=== PATIENT | female | born 2005 | race American Indian/Alaskan Native ===

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

== ENCOUNTER 2024-08-19 18:51 | Emergency (ER) | payer SELFPAY ==
[2024-08-19 19:13] VITALS: PULSE 102
[2024-08-19] MEDS: Dexamethasone 4 MG/ML SDV IM ONE (20:01)
[2024-08-19 20:09] VITALS: BP 110/73
== END 2024-08-19 20:07 | disposition home or self-care (01) ==
LOC: DL.ED 18:51
DX: J06.9 Acute upper respiratory infection, unspecified (principal); B97.89 Other viral agents as the cause of diseases classified elsewhere; N63.0 Unspecified lump in unspecified breast; J45.909 Unspecified asthma, uncomplicated; F17.210 Nicotine dependence, cigarettes, uncomplicated
CPT/HCPCS: 71046; 87081; 87428; 87430; 96372; 99284; J1100

== ENCOUNTER 2024-08-20 03:30 | Emergency (ER) | payer SELFPAY ==
[2024-08-20 03:44] LABS: BASOPHILS PERCENT AUTO 0.4 % (0.0-1.0); HEMATOCRIT 26.5 % (37.0-47.0); HEMOGLOBIN 7.2 g/dL (12.0-16.0); LYMPHOCYTES PERCENT AUTO 4.1 % (20.5-50.1); MEAN CORPUSCULAR HEMOGLOBIN 16.7 pg (27.0-34.0); MEAN CORPUSCULAR HGB CONC 27.2 g/dL (33.0-35.0); MEAN CORPUSCULAR VOLUME 61.6 fL (80-100); MONOCYTES PERCENT AUTO 0.4 % (2-8); NEUTROPHILS PERCENT AUTO 95.1 % (42.2-75.2); PLATELET COUNT,PLT 422 10^3/uL (150-450); WHITE BLOOD CELL COUNT,WBC 10.3 10^3/uL (5.0-10.0)
[2024-08-20] MEDS: Bacitracin Oint 1 GM U/D Packet TOP ONE (03:54)
[2024-08-20] MEDS: Diphtheria,Pertussis(Acell),Tetanus Vaccine 0.5 ML Syringe IM ONE (03:54)
[2024-08-20] MEDS: Sodium Chloride 0.9% 1,000 ML IV ONE (04:01)
[2024-08-20 04:23] LABS: ALBUMIN 3.8 g/dL (3.4-5.0); ANION GAP 19.1 mEq/L (7-13); BILIRUBIN TOTAL 0.4 mg/dL (0.2-1.0); BUN/CREATININE RATIO 5.2 (No establ ref range); CALCIUM 8.1 mg/dL (8.5-10.1); CREATININE 0.58 mg/dL (0.55-1.02); EST CRCL DRUG DOSING (CG) 149.57 mL/min; POTASSIUM,K 4.1 mmol/L (3.5-5.1); PROTEIN TOTAL,TP 7.6 g/dL (6.4-8.2); TSH ULTRASENSITIVE 0.47 uIU/mL (0.36-3.74)
[2024-08-20 04:58] LABS: APPEARANCE,URINE SLIGHTLY CLOUDY (CLEAR); BILIRUBIN,URINE NEGATIVE (NEGATIVE); COLOR,URINE YELLOW (YELLOW); GLUCOSE,URINE 100 (NEGATIVE); KETONES,URINE NEGATIVE (NEGATIVE); LEUKOCYTE ESTERASE,URINE SMALL (NEGATIVE); NITRITE,URINE NEGATIVE (NEGATIVE); OCCULT BLOOD,URINE LARGE (NEGATIVE); PH,URINE 5.5 (5.0-9.0); PROTEIN,URINE NEGATIVE (NEGATIVE); UROBILINOGEN,URINE 0.2 mg/dL (0.2-1.0)
[2024-08-20 05:06] LABS: AMPHETAMINES,URINE NEGATIVE (NEGATIVE); BARBITURATES,URINE NEGATIVE (NEGATIVE); BENZODIAZEPINE,URINE NEGATIVE (NEGATIVE); MDMA (ECSTASY), URINE NEGATIVE (NEGATIVE); METHADONE,URINE NEGATIVE (NEGATIVE); METHAMPHETAMINES,URINE NEGATIVE (NEGATIVE); OPIATES,URINE NEGATIVE (NEGATIVE); OXYCODONE,URINE NEGATIVE (NEGATIVE); PHENCYCLIDINE,URINE NEGATIVE (NEGATIVE); TCA,URINE NEGATIVE (NEGATIVE)
[2024-08-20 05:07] LABS: AMORPHOUS SEDIMENT,URINE RARE /HPF (NOT SEEN); BACTERIA,URINE FEW /HPF (0-FEW/HPF); EPITHELIAL CELLS,URINE FEW /HPF (NOT SEEN); MUCUS,URINE FEW /LPF (NOT SEEN); RBC,URINE 40-50 /HPF (0-5)
[2024-08-20] MEDS: cefTRIAXone 1 GM Vial IVPUSH ONE (05:18)
[2024-08-20 07:30] LABS: BASOPHILS PERCENT AUTO 0.3 % (0.0-1.0); HEMATOCRIT 23.2 % (37.0-47.0); LYMPHOCYTES PERCENT AUTO 6.2 % (20.5-50.1); MEAN CORPUSCULAR HEMOGLOBIN 16.6 pg (27.0-34.0); MEAN CORPUSCULAR HGB CONC 26.7 g/dL (33.0-35.0); MONOCYTES PERCENT AUTO 0.4 % (2-8); NEUTROPHILS PERCENT AUTO 93.1 % (42.2-75.2); PLATELET COUNT,PLT 341 10^3/uL (150-450); RED BLOOD CELL COUNT 3.74 10^6/uL (4.2-5.4); WHITE BLOOD CELL COUNT,WBC 7.2 10^3/uL (5.0-10.0)
[2024-08-20 07:33] LABS: HEMOGLOBIN 6.2 g/dL (12.0-16.0)
[2024-08-20 07:48] LABS: ACETAMINOPHEN 5 ug/mL (10-30 (Therapeutic)); ETHANOL BLOOD MEDICAL 142 mg/dL (0)
[2024-08-20 11:55] VITALS: BP 112/69; PULSE 109
== END 2024-08-20 10:44 | disposition home or self-care (01) ==
LOC: DL.ED 03:30
DX: S61.511A Laceration without foreign body of right wrist, initial encounter (principal); S61.512A Laceration without foreign body of left wrist, initial encounter; F10.120 Alcohol abuse with intoxication, uncomplicated; D64.9 Anemia, unspecified; N39.0 Urinary tract infection, site not specified; J45.909 Unspecified asthma, uncomplicated; F17.210 Nicotine dependence, cigarettes, uncomplicated; Y90.8 Blood alcohol level of 240 mg/100 ml or more; W26.8XXA Contact with other sharp object(s), not elsewhere classified, initial encounter; Z23 Encounter for immunization
CPT/HCPCS: 36415; 80053; 80143; 80179; 80305; 80307; 81001; 81025; 84443; 85025; 86850; 86900; 86901; 87086; 90471; 90715; 93005; 96361; 96374; 99285; A9270; J0696; J7030

== ENCOUNTER 2024-10-30 21:47 | Observation (INO) | payer SELFPAY ==
[2024-10-30 22:02] LABS: BASOPHILS PERCENT AUTO 0.5 % (0.0-1.0); EOSINOPHILS PERCENT AUTO 1.4 % (1.0-3.0); HEMATOCRIT 25.3 % (37.0-47.0); LYMPHOCYTES PERCENT AUTO 25.6 % (20.5-50.1); MEAN CORPUSCULAR HEMOGLOBIN 15.7 pg (27.0-34.0); MEAN CORPUSCULAR HGB CONC 26.5 g/dL (33.0-35.0); MEAN CORPUSCULAR VOLUME 59.4 fL (80-100); MONOCYTES PERCENT AUTO 9.5 % (2-8); PLATELET COUNT,PLT 502 10^3/uL (150-450); RED BLOOD CELL COUNT 4.26 10^6/uL (4.2-5.4); WHITE BLOOD CELL COUNT,WBC 6.6 10^3/uL (5.0-10.0)
[2024-10-30 22:04] LABS: APPEARANCE,URINE SLIGHTLY CLOUDY (CLEAR); BILIRUBIN,URINE NEGATIVE (NEGATIVE); COLOR,URINE YELLOW (YELLOW); GLUCOSE,URINE NEGATIVE (NEGATIVE); KETONES,URINE TRACE (NEGATIVE); LEUKOCYTE ESTERASE,URINE SMALL (NEGATIVE); NITRITE,URINE NEGATIVE (NEGATIVE); OCCULT BLOOD,URINE NEGATIVE (NEGATIVE); PROTEIN,URINE 30 (NEGATIVE); UROBILINOGEN,URINE 0.2 mg/dL (0.2-1.0)
[2024-10-30 22:07] LABS: HEMOGLOBIN 6.7 g/dL (12.0-16.0)
[2024-10-30 22:09] LABS: AMPHETAMINES,URINE NEGATIVE (NEGATIVE); BARBITURATES,URINE NEGATIVE (NEGATIVE); BENZODIAZEPINE,URINE NEGATIVE (NEGATIVE); MDMA (ECSTASY), URINE NEGATIVE (NEGATIVE); METHADONE,URINE NEGATIVE (NEGATIVE); METHAMPHETAMINES,URINE NEGATIVE (NEGATIVE); OPIATES,URINE NEGATIVE (NEGATIVE); OXYCODONE,URINE NEGATIVE (NEGATIVE); PHENCYCLIDINE,URINE NEGATIVE (NEGATIVE); TCA,URINE NEGATIVE (NEGATIVE)
[2024-10-30 22:15] LABS: BACTERIA,URINE MODERATE /HPF (0-FEW/HPF); EPITHELIAL CELLS,URINE MODERATE /HPF (NOT SEEN); MUCUS,URINE MODERATE /LPF (NOT SEEN); RBC,URINE 0-5 /HPF (0-5); WBC,URINE 40-50 /HPF (0-5/HPF)
[2024-10-30 22:24] LABS: A/G RATIO 1.3; ALANINE AMINOTRANSFERASE,ALT 21 U/L (14-59); ALKALINE PHOSPHATASE 47 U/L (46-116); ANION GAP 14.7 mEq/L (7-13); ASPARTATE AMNIOTRANSFERASE,AST 17 U/L (15-37); BILIRUBIN TOTAL 0.4 mg/dL (0.2-1.0); BLOOD UREA NITROGEN,BUN 4 mg/dL (7-18); BUN/CREATININE RATIO 7.1 (No establ ref range); CALCIUM 8.6 mg/dL (8.5-10.1); CARBON DIOXIDE,CO2 27 mmol/L (21-32); CHLORIDE,CL 104 mmol/L (98-107); CREATININE 0.56 mg/dL (0.55-1.02); EST CRCL DRUG DOSING (CG) 145.73 mL/min; GLUCOSE RANDOM 108 mg/dL (70-99); MAGNESIUM 2.1 mg/dL (1.8-2.4); POTASSIUM,K 3.7 mmol/L (3.5-5.1); SODIUM,NA 142 mmol/L (136-145)
[2024-10-30 22:30] LABS: ESTIMATED GFR 134 mL/min (>=60); ETHANOL BLOOD MEDICAL < 3 mg/dL (0)
[2024-10-30] MEDS: Lactated Ringers 1,000 ML IV ONE ×2 (22:49→23:37)
[2024-10-30] MEDS: cefTRIAXone 1 GM Vial IVPUSH ONE (22:50)
[2024-10-31] MEDS ORDERED: Acetaminophen 325 MG Tab PO PRN (00:23)
[2024-10-31] MEDS: Sodium Chloride 0.9% 1,000 ML IV SCH (07:25)
[2024-10-31 07:33] LABS: BASOPHILS PERCENT AUTO 0.6 % (0.0-1.0); EOSINOPHILS PERCENT AUTO 1.7 % (1.0-3.0); HEMATOCRIT 29.3 % (37.0-47.0); HEMOGLOBIN 8.5 g/dL (12.0-16.0); LYMPHOCYTES PERCENT AUTO 40.7 % (20.5-50.1); MEAN CORPUSCULAR HEMOGLOBIN 19.5 pg (27.0-34.0); MONOCYTES PERCENT AUTO 11.5 % (2-8); NEUTROPHILS PERCENT AUTO 45.5 % (42.2-75.2); PLATELET COUNT,PLT 416 10^3/uL (150-450); RED BLOOD CELL COUNT 4.37 10^6/uL (4.2-5.4); WHITE BLOOD CELL COUNT,WBC 6.6 10^3/uL (5.0-10.0)
[2024-10-31] MEDS: Nicotine 7 MG/24 Hr Patch TRDERM SCH (08:57)
[2024-10-31] MEDS: Cefdinir 250 MG/5 ML Susp 100 ML Bottle PO SCH (08:59)
[2024-10-31] MEDS: Sertraline 50 MG Tab PO SCH (08:59)
[2024-10-31 11:04] VITALS: BP 106/61; PULSE 65
[2024-10-31] MEDS: Midodrine 5 MG Tab PO ONE (11:05)
== END 2024-10-31 10:45 | disposition home or self-care (01) ==
LOC: DL.ED 21:47 → DL.MS 10-31 00:10
PROVIDERS: ADMIT Internal Medicine; ATTEND Internal Medicine
DX: R55 Syncope and collapse (principal); E86.1 Hypovolemia; D50.9 Iron deficiency anemia, unspecified; E86.0 Dehydration; N92.0 Excessive and frequent menstruation with regular cycle; N39.0 Urinary tract infection, site not specified; F19.10 Other psychoactive substance abuse, uncomplicated; F17.210 Nicotine dependence, cigarettes, uncomplicated; Z79.899 Other long term (current) drug therapy
CPT/HCPCS: 36415; 36430; 70450; 71045; 80053; 80305; 80307; 81001; 81025; 82947; 83735; 84484; 85025; 86850; 86900; 86901; 86920; 86922; 87086; 93005; 93010; 96361; 96374; 99284; 99285; A9270; J0696; J7030; J7120; P9016; 87088; 87186; G0378

== ENCOUNTER 2025-02-13 02:50 | Emergency (ER) | payer MEDICAID ==
[2025-02-13 03:35] LABS: BASOPHILS PERCENT AUTO 0.3 % (0.0-1.0); EOSINOPHILS PERCENT AUTO 1.5 % (1.0-3.0); HEMATOCRIT 34.9 % (37.0-47.0); HEMOGLOBIN 10.9 g/dL (12.0-16.0); LYMPHOCYTES PERCENT AUTO 19.3 % (20.5-50.1); MEAN CORPUSCULAR HEMOGLOBIN 21.8 pg (27.0-34.0); MEAN CORPUSCULAR HGB CONC 31.2 g/dL (33.0-35.0); MEAN CORPUSCULAR VOLUME 69.8 fL (80-100); MONOCYTES PERCENT AUTO 10.2 % (2-8); NEUTROPHILS PERCENT AUTO 68.7 % (42.2-75.2); PLATELET COUNT,PLT 302 10^3/uL (150-450); WHITE BLOOD CELL COUNT,WBC 6.8 10^3/uL (5.0-10.0)
[2025-02-13 03:38] LABS: APPEARANCE,URINE CLEAR (CLEAR); BILIRUBIN,URINE NEGATIVE (NEGATIVE); COLOR,URINE YELLOW (YELLOW); GLUCOSE,URINE NEGATIVE (NEGATIVE); KETONES,URINE NEGATIVE (NEGATIVE); LEUKOCYTE ESTERASE,URINE NEGATIVE (NEGATIVE); NITRITE,URINE NEGATIVE (NEGATIVE); OCCULT BLOOD,URINE NEGATIVE (NEGATIVE); PROTEIN,URINE NEGATIVE (NEGATIVE); UROBILINOGEN,URINE 0.2 mg/dL (0.2-1.0)
[2025-02-13 03:41] LABS: AMPHETAMINES,URINE NEGATIVE (NEGATIVE); BARBITURATES,URINE NEGATIVE (NEGATIVE); BENZODIAZEPINE,URINE NEGATIVE (NEGATIVE); MDMA (ECSTASY), URINE NEGATIVE (NEGATIVE); METHADONE,URINE NEGATIVE (NEGATIVE); METHAMPHETAMINES,URINE NEGATIVE (NEGATIVE); OPIATES,URINE NEGATIVE (NEGATIVE); OXYCODONE,URINE NEGATIVE (NEGATIVE); PHENCYCLIDINE,URINE NEGATIVE (NEGATIVE); TCA,URINE NEGATIVE (NEGATIVE)
[2025-02-13 03:48] VITALS: BP 111/74; PULSE 93
[2025-02-13 03:48] LABS: AMORPHOUS SEDIMENT,URINE RARE /HPF (NOT SEEN); BACTERIA,URINE RARE /HPF (0-FEW/HPF); EPITHELIAL CELLS,URINE FEW /HPF (NOT SEEN); MUCUS,URINE RARE /LPF (NOT SEEN); RBC,URINE 0-5 /HPF (0-5); WBC,URINE 0-5 /HPF (0-5/HPF)
[2025-02-13 04:01] LABS: A/G RATIO 0.9; ALANINE AMINOTRANSFERASE,ALT 35 U/L (14-59); ALBUMIN 3.6 g/dL (3.4-5.0); ALKALINE PHOSPHATASE 86 U/L (46-116); ANION GAP 15.9 mEq/L (7-13); ASPARTATE AMNIOTRANSFERASE,AST 27 U/L (15-37); BILIRUBIN TOTAL 0.3 mg/dL (0.2-1.0); BLOOD UREA NITROGEN,BUN 5 mg/dL (7-18); BUN/CREATININE RATIO 8.9 (No establ ref range); CALCIUM 8.4 mg/dL (8.5-10.1); CARBON DIOXIDE,CO2 23 mmol/L (21-32); CHLORIDE,CL 108 mmol/L (98-107); CREATININE 0.56 mg/dL (0.55-1.02); ESTIMATED GFR 133 mL/min (>=60); GLUCOSE RANDOM 110 mg/dL (70-99); POTASSIUM,K 3.9 mmol/L (3.5-5.1); PROTEIN TOTAL,TP 7.4 g/dL (6.4-8.2); SODIUM,NA 143 mmol/L (136-145)
== END 2025-02-13 04:44 | disposition home or self-care (01) ==
LOC: DL.ED 02:50
DX: R10.30 Lower abdominal pain, unspecified (principal); J45.909 Unspecified asthma, uncomplicated
CPT/HCPCS: 36415; 80053; 80305-QW; 81001; 84702; 85025; 99283; 99284

== ENCOUNTER 2025-04-28 00:09 | Emergency (ER) | payer MEDICAID ==
[2025-04-28 00:28] LABS: BASOPHILS PERCENT AUTO 0.6 % (0.0-1.0); EOSINOPHILS PERCENT AUTO 1.1 % (1.0-3.0); LYMPHOCYTES PERCENT AUTO 21.5 % (20.5-50.1); MONOCYTES PERCENT AUTO 9.8 % (2-8); NEUTROPHILS PERCENT AUTO 67.0 % (42.2-75.2); PLATELET COUNT,PLT 330 10^3/uL (150-450); RED BLOOD CELL COUNT 5.24 10^6/uL (4.2-5.4); WHITE BLOOD CELL COUNT,WBC 5.4 10^3/uL (5.0-10.0)
[2025-04-28 00:42] LABS: APPEARANCE,URINE CLEAR (CLEAR); GLUCOSE,URINE NEGATIVE (NEGATIVE); OCCULT BLOOD,URINE TRACE-LYSED (NEGATIVE)
[2025-04-28 00:45] LABS: AMPHETAMINES,URINE NEGATIVE (NEGATIVE); BARBITURATES,URINE NEGATIVE (NEGATIVE); MDMA (ECSTASY), URINE NEGATIVE (NEGATIVE); METHAMPHETAMINES,URINE NEGATIVE (NEGATIVE); OPIATES,URINE NEGATIVE (NEGATIVE); OXYCODONE,URINE NEGATIVE (NEGATIVE); PHENCYCLIDINE,URINE NEGATIVE (NEGATIVE); TCA,URINE NEGATIVE (NEGATIVE)
[2025-04-28 00:50] LABS: EPITHELIAL CELLS,URINE MODERATE /HPF (NOT SEEN)
[2025-04-28 00:57] LABS: A/G RATIO 1.0; ALANINE AMINOTRANSFERASE,ALT 63 U/L (14-59); ASPARTATE AMNIOTRANSFERASE,AST 49 U/L (15-37); BILIRUBIN TOTAL 0.3 mg/dL (0.2-1.0); BLOOD UREA NITROGEN,BUN 4 mg/dL (7-18); CARBON DIOXIDE,CO2 27 mmol/L (21-32); CHLORIDE,CL 106 mmol/L (98-107); CREATININE 0.50 mg/dL (0.55-1.02); ETHANOL BLOOD MEDICAL 216 mg/dL (0); GLUCOSE RANDOM 113 mg/dL (70-99); POTASSIUM,K 3.9 mmol/L (3.5-5.1); PROTEIN TOTAL,TP 8.2 g/dL (6.4-8.2); SODIUM,NA 144 mmol/L (136-145); TSH ULTRASENSITIVE 0.91 uIU/mL (0.36-3.74)
[2025-04-28 00:58] LABS: ESTIMATED GFR 137 mL/min (>=60)
[2025-04-28 05:22] VITALS: BP 104/75; PULSE 85
== END 2025-04-28 05:20 | disposition home or self-care (01) ==
LOC: DL.ED 00:09
DX: S51.812A Laceration without foreign body of left forearm, initial encounter (principal); S51.811A Laceration without foreign body of right forearm, initial encounter; F10.120 Alcohol abuse with intoxication, uncomplicated; Z79.899 Other long term (current) drug therapy; Y90.9 Presence of alcohol in blood, level not specified; X78.9XXA Intentional self-harm by unspecified sharp object, initial encounter; Y93.89 Activity, other specified
CPT/HCPCS: 12004; 36415; 80053; 80305-QW; 80307; 81001; 81025; 83690; 84443; 85025; 99285

== ENCOUNTER 2025-06-29 20:39 | Emergency (ER) | payer MEDICAID ==
[2025-06-29 20:48] VITALS: BP 120/73; PULSE 116
[2025-06-29] MEDS ORDERED: Sodium Chloride 0.9% 10 ML Syringe FLUSH PRN (20:52)
[2025-06-29 21:16] LABS: BASOPHILS PERCENT AUTO 1.2 % (0.0-1.0); EOSINOPHILS PERCENT AUTO 1.0 % (1.0-3.0); LYMPHOCYTES PERCENT AUTO 44.1 % (20.5-50.1); MONOCYTES PERCENT AUTO 9.4 % (2-8); NEUTROPHILS PERCENT AUTO 44.3 % (42.2-75.2); PLATELET COUNT,PLT 378 10^3/uL (150-450); RED BLOOD CELL COUNT 4.90 10^6/uL (4.2-5.4); WHITE BLOOD CELL COUNT,WBC 4.1 10^3/uL (5.0-10.0)
[2025-06-29 21:33] LABS: INR 1.0 (0.9-1.2); PTT,PARTIAL THROMBOPLSTIN TIME 23.0 SEC (22.0-34.0)
[2025-06-29 21:45] LABS: A/G RATIO 1.4; ALANINE AMINOTRANSFERASE,ALT 27 U/L (14-59); ASPARTATE AMNIOTRANSFERASE,AST 33 U/L (15-37); BILIRUBIN TOTAL 0.2 mg/dL (0.2-1.0); BLOOD UREA NITROGEN,BUN 4 mg/dL (7-18); CARBON DIOXIDE,CO2 28 mmol/L (21-32); CHLORIDE,CL 107 mmol/L (98-107); CREATININE 0.55 mg/dL (0.55-1.02); EST CRCL DRUG DOSING (CG) 151.78 mL/min; GLUCOSE RANDOM 113 mg/dL (70-99); POTASSIUM,K 3.4 mmol/L (3.5-5.1); PROTEIN TOTAL,TP 7.2 g/dL (6.4-8.2); SODIUM,NA 147 mmol/L (136-145); TSH ULTRASENSITIVE 0.88 uIU/mL (0.36-3.74)
[2025-06-29 21:45] LABS: AMPHETAMINES,URINE NEGATIVE (NEGATIVE); BARBITURATES,URINE NEGATIVE (NEGATIVE); MDMA (ECSTASY), URINE NEGATIVE (NEGATIVE); METHAMPHETAMINES,URINE NEGATIVE (NEGATIVE); OPIATES,URINE NEGATIVE (NEGATIVE); OXYCODONE,URINE NEGATIVE (NEGATIVE); PHENCYCLIDINE,URINE NEGATIVE (NEGATIVE); TCA,URINE NEGATIVE (NEGATIVE)
[2025-06-29 21:46] LABS: ESTIMATED GFR 134 mL/min (>=60); ETHANOL BLOOD MEDICAL 376 mg/dL (0)
== END 2025-06-29 21:57 | disposition left against medical advice (07) ==
LOC: DL.ED 20:39
DX: F10.120 Alcohol abuse with intoxication, uncomplicated (principal); F41.9 Anxiety disorder, unspecified; F17.200 Nicotine dependence, unspecified, uncomplicated; Y90.9 Presence of alcohol in blood, level not specified
CPT/HCPCS: 36415; 80053; 80305-QW; 80307; 81025; 83735; 84443; 84484; 85025; 85610; 85730; 93005; 99285

== ENCOUNTER 2025-07-05 07:40 | Emergency (ER) | payer MEDICAID ==
[2025-07-05 08:11] LABS: BASOPHILS PERCENT AUTO 0.4 % (0.0-1.0); EOSINOPHILS PERCENT AUTO 0.7 % (1.0-3.0); LYMPHOCYTES PERCENT AUTO 28.2 % (20.5-50.1); MONOCYTES PERCENT AUTO 9.6 % (2-8); NEUTROPHILS PERCENT AUTO 61.1 % (42.2-75.2); PLATELET COUNT,PLT 252 10^3/uL (150-450); RED BLOOD CELL COUNT 4.94 10^6/uL (4.2-5.4); WHITE BLOOD CELL COUNT,WBC 4.6 10^3/uL (5.0-10.0)
[2025-07-05 08:46] LABS: A/G RATIO 1.1; ALANINE AMINOTRANSFERASE,ALT 33.0 U/L (14-59); ASPARTATE AMNIOTRANSFERASE,AST 33.0 U/L (15-37); BILIRUBIN TOTAL 0.2 mg/dL (0.2-1.0); BLOOD UREA NITROGEN,BUN 4.0 mg/dL (7-18); CARBON DIOXIDE,CO2 23.0 mmol/L (21-32); CHLORIDE,CL 109.0 mmol/L (98-107); CREATININE 0.51 mg/dL (0.55-1.02); EST CRCL DRUG DOSING (CG) 159.77 mL/min; ETHANOL BLOOD MEDICAL 248.0 mg/dL (0); GLUCOSE RANDOM 111.0 mg/dL (70-99); POTASSIUM,K 3.4 mmol/L (3.5-5.1); PROTEIN TOTAL,TP 7.9 g/dL (6.4-8.2); SODIUM,NA 145.0 mmol/L (136-145); TSH ULTRASENSITIVE 2.09 uIU/mL (0.36-3.74)
[2025-07-05 08:51] LABS: ESTIMATED GFR 136.0 mL/min (>=60)
[2025-07-05] MEDS: Bacitracin Oint 1 GM U/D Packet TOP ONE (10:30)
[2025-07-05] MEDS: Bacitracin Oint 1 GM U/D Packet ONE (11:08)
[2025-07-05 11:43] VITALS: BP 108/70; PULSE 80
== END 2025-07-05 12:35 | disposition home or self-care (01) ==
LOC: DL.ED 07:40
DX: S51.811A Laceration without foreign body of right forearm, initial encounter (principal); S51.812A Laceration without foreign body of left forearm, initial encounter; F32.A Depression, unspecified; F17.200 Nicotine dependence, unspecified, uncomplicated; X83.8XXA Intentional self-harm by other specified means, initial encounter
CPT/HCPCS: 12006; 36415; 80053; 80143; 80179; 80307; 84443; 85025; 99285; A9270; J2003